=== PATIENT | female | born 1955 | race Caucasian/White ===

== ENCOUNTER → 2017-07-22 | Day surgery (SDC) | payer BC ==
[~2017-07-22] MED LIST: ALLERGY10 M1 PO; B COMPLEX1 EACH PO; CALCIUM 600 +1 EAC5 PO; ESTRACE PO; ESTRACE42.5 GM; ESTRING VG; EVISTA60 MG; FIBER-TABS625 MG PO; FIBER1 TAB.CHEW PO; FORTEO2.4 ML; LORATADINE; MAGNESIUM250 M1 PO; MULTI-DAY VITA1 EACH PO; OMEPRAZOLE20 M1 PO; OYSTER CALCIUM500 MG PO; PRILOSEC20 MG PO; VIT B-12; VIT C PO; VIT E; VITAMIN C1000 M2 PO; VITAMIN D32000 UNIT PO; VITAMIN E400 UNI2 PO; VOL-CARE RX TA1 EACH PO; [UNRECOGNIZED DRUG - OTHER]; [UNRECOGNIZED DRUG - OTHER] SUBQ
--- NOTE | ~2017-07-22 | OR ---
Unit #: [id number] #: [id number] Patient: TAMMY ARDON [id number] [address] [place], [place] [address] [id number] O MR#: [id number] NAME: TAMMY ARDON ROOM: Date of Procedure: 07/22/2017 Admission Date: 07/22/2017 Surgeon: Foster Cuenca M.D. : 1955 Attending Physician: Foster Cuenca M.D. Primary Care Physician: Alejandra Booker M.D. OPERATIVE REPORT PREOPERATIVE DIAGNOSIS Screening colonoscopy. POSTOPERATIVE DIAGNOSIS Screening colonoscopy. PROCEDURE PERFORMED Colonoscopy to cecum. ANESTHESIA Monitored anesthesia care. FINDINGS The patient had a few scattered sigmoid diverticula. Mild internal hemorrhoids. No other abnormalities were seen. SPECIMENS None. COMPLICATIONS None apparent. CONDITION The patient tolerated the procedure well. INDICATIONS FOR PROCEDURE The patient is a 62-year-old white female, who presents at this time for screening colonoscopy. DESCRIPTION OF PROCEDURE After obtaining informed consent, the patient was brought to the endoscopy suite and after adequate monitored anesthesia care, had the colonoscope placed through the anus and slowly advanced to the level of the cecum without difficulty with the lumen always in view. The cecum was normal as was the ileocecal valve. The ascending colon was normal as was the hepatic flexure, transverse colon, splenic flexure, and descending colon. In the sigmoid colon, had a few scattered sigmoid diverticula present. The rectosigmoid and rectum were all within normal limits. On retroflexing in the rectum to the anorectal junction, the patient was found to have some mild internal hemorrhoids. The scope was removed without difficulty. The patient tolerated the procedure well and went from the endoscopy suite to recovery area in stable condition. Unit #: [id number] #: [id number] Patient: TAMMY ARDON RECOMMENDATIONS High-fiber diet, lots of liquids, tucks or wipes p.r.n. Follow up in our office as needed. Dictated by... Foster Cuenca M.D. JPG/guerdal TD: 07/22/2017 13:18 JOB #: [id number] CC: [facility] [place] [facility] Alejandra Booker M.D. OPERATIVE REPORT Page 1 of 1 X Foster Cuenca MD PROCEDURE OPERATIVE NOTE
== END | disposition home or self-care (01) ==
LOC: COPS 10:40
PROVIDERS: Surgery
PROC: 0DJD8ZZ Inspection of Lower Intestinal Tract, Via Natural or Artificial Opening Endoscopic (ICD-10-PCS; principal; 2017-07-22 12:30)
DX: Z12.11 Encounter for screening for malignant neoplasm of colon (principal); K57.30 Diverticulosis of large intestine without perforation or abscess without bleeding; K64.8 Other hemorrhoids; Z80.0 Family history of malignant neoplasm of digestive organs; K21.9 Gastro-esophageal reflux disease without esophagitis; M81.0 Age-related osteoporosis without current pathological fracture; H93.19 Tinnitus, unspecified ear; J30.2 Other seasonal allergic rhinitis; M25.569 Pain in unspecified knee; Z79.899 Other long term (current) drug therapy; Z83.79 Family history of other diseases of the digestive system; Z82.49 Family history of ischemic heart disease and other diseases of the circulatory system; Z80.8 Family history of malignant neoplasm of other organs or systems; Z83.6 Family history of other diseases of the respiratory system; Z90.710 Acquired absence of both cervix and uterus; Z98.51 Tubal ligation status; Z98.890 Other specified postprocedural states
CPT/HCPCS: J2250